=== PATIENT | male | born 1950 | race Caucasian/White ===

== ENCOUNTER 2018-04-30 08:51 | Emergency (ER) | payer MEDICARE, OTHER ==
--- NOTE | 2018-04-30 10:12 | EDM.PDOC ---
ED HPI GENERAL MEDICAL PROBLEM - General Chief Complaint: Upper Extremity Injury/Pain Stated Complaint: HURT RT ELBOW Time Seen by Provider: 04/30/18 10:02 Source of Information: Reports: Patient, Family, RN Notes Reviewed History Limitations: Reports: No Limitations - History of Present Illness INITIAL COMMENTS - FREE TEXT/NARRATIVE: 67-year-old gentleman presents to the emergency department today with complaint of right elbow pain, he states he fell about 5 days ago he does have a little bit of swelling but the bruise that he has over the wound is not healing he's now developed some warmth and some redness over the wound is concerned about infection Right Elbow Pain Score (Numeric/FACES): 8 - Related Data Allergies Allergy/AdvReac Type Severity Reaction Status Date / Time hyaluronate sodium Allergy Swelling Verified 05/12/14 13:11 [From Hyalgan] Home Meds: Home Meds Aspirin [Adult Low Dose Aspirin EC] 81 mg PO DAILY 05/12/14 [History] Atenolol 25 mg PO DAILY 05/12/14 [History] FLUoxetine HCl [Fluoxetine HCl] 10 mg PO DAILY 05/12/14 [History] Gabapentin [Neurontin] 800 mg PO TID 05/12/14 [History] Hydrochlorothiazide 50 mg PO DAILY 05/12/14 [History] Lisinopril 2.5 mg PO DAILY 05/12/14 [History] amLODIPine Besylate [Norvasc] 2.5 mg PO DAILY 05/12/14 [History] metFORMIN [metFORMIN XR] 500 mg PO BIDM 05/12/14 [History] Past Medical History HEENT History: Reports: Impaired Vision Musculoskeletal History: Reports: Back Pain, Chronic Endocrine/Metabolic History: Reports: Diabetes, Type II Social & Family History - Tobacco Use Smoking Status *Q: Never Smoker - Caffeine Use Caffeine Use: Reports: Coffee - Recreational Drug Use Recreational Drug Use: No Review of Systems - Review of Systems Review Of Systems: See Below Constitutional: Reports: No Symptoms Musculoskeletal: Reports: Joint Pain Skin: Reports: Pallor (Elbow pain), Rash, Wound ED EXAM, GENERAL - Physical Exam Exam: See Below Free Text/Narrative:: Examination of the right elbow I do appreciate some edema over the elbow as well as some erythema approximately the size of a baseball it is warm to the touch it is tender to the touch he has full range of motion the elbow radial pulse is +2 Exam Limited By: No Limitations General Appearance: Alert, WD/WN, No Apparent Distress Course - Vital Signs Last Recorded V/S: Last Vital Signs Temp 95.4 F 04/30/18 09:12 Pulse 61 04/30/18 09:12 Resp 16 04/30/18 09:12 BP 128/79 04/30/18 09:12 Pulse Ox 95 04/30/18 09:12 - Orders/Labs/Meds Orders: Active Orders 24 hr Category Date Time Status Elbow Min 3V Rt [CR] Stat Exams 04/30/18 10:10 Taken Departure - Departure Time of Disposition: 10:40 Disposition: Home, Self-Care 01 Condition: Good Clinical Impression: Cellulitis of right elbow - Discharge Information Referrals: PCP,None [Primary Care Provider] - Forms: ED Department Discharge Additional Instructions: Take full course of antibiotics, Please followup with your primary care provider in 3-5 days if not better, please call return to the emergency department with worsening of symptoms. - My Orders Last 24 Hours: My Active Orders 04/30/18 10:10 Elbow Min 3V Rt [CR] Stat - Assessment/Plan Last 24 Hours: My Active Orders 04/30/18 10:10 Elbow Min 3V Rt [CR] Stat Plan: Assessment Acuity = acute Site and laterality = cellulitis right elbow Etiology = probable bacterial cause Manifestations = pain, edema Location of injury = Home Lab values = elbow x-ray I did review films myself I cannot appreciate any acute process, the official read from radiology is pending Plan Elected to treat him empirically Keflex 500 mg 3 times a day 7 days follow-up with primary care in 5-7 days if no improvement This note was dictated using [email or web address] voice recognition software please call with any questions on syntax or grammar.
--- NOTE | 2018-05-02 08:44 | CR ---
Elbow Min 3V Rt CLINICAL HISTORY: Pain, fall FINDINGS: No acute fracture or dislocation is noted. The fat pads are in normal position..
== END 2018-04-30 10:55 | disposition home or self-care (01) ==
LOC: JP.ED 08:51
DX: L03.113 Cellulitis of right upper limb (principal); E11.9 Type 2 diabetes mellitus without complications; Z88.8 Allergy status to other drugs, medicaments and biological substances; Z79.899 Other long term (current) drug therapy; Z79.82 Long term (current) use of aspirin
CPT/HCPCS: 73080-26-RT; 73080-RT; 99283; 99284